=== PATIENT | male | born 1950 | race Two or more races ===

== ENCOUNTER 2022-12-15 19:45 | Inpatient (IN) | payer MEDICARE, OTHER ==
[~2022-12-15] VITALS: Ht 188 cm; Wt 84.8 kg
[~2022-12-15 19:45] MED LIST: BENZ1TAB22 PO; DIVA500T2 PO; LACT10SO29 PO; LEVO250T59 PO; LEVO25TA9 PO; LEVO330T PO; LORA-259 PO; OLAN5TAB3 PO
--- NOTE | 2022-12-15 20:16 | NUR ---
COVID SWAB DONE AND SENT TO LAB
--- NOTE | 2022-12-15 20:17 | NUR ---
WILFREDO FROM A SNF. SENT BY THE PMD FOR PSYCH EVAL. PT IA AAOX2. NOT IN RESP DISTRESS. SENT IN TO HAVE A PSYCHIATRIC EVAULATION. PER REPORT, PT WAS AGRRESSIVE - PHYSICALLY BY HITTING AND PUNCHING STAFF AND VERBALLY ABUSIVE TO STAFF BY CURSING, YELLING AND THREATENING TO HIT STAFF. PT IS NOTED AGITATED UPON ARRIVAL. MD WAS AT THE BEDSIDE. ORDERS RECEIVED.
[2022-12-15 20:29] LABS: BASOPHILS % (AUTO) 0.5 % (0.0-2.0); EOSINOPHILS % (AUTO) 3.8 % (0.0-6.0); HEMATOCRIT 39 % (39-51); HEMOGLOBIN 12.6 g/dL (13.5-17.5); LYMPHOCYTES # (AUTO) 2.2 K/uL (0.8-4.8); LYMPHOCYTES % (AUTO) 37.2 % (20.0-44.0); MEAN CORPUSCULAR HGB CONC 32 g/dl (31.0-36.0); MEAN CORPUSCULAR VOLUME 95 fL (80-96); MONOCYTES # (AUTO) 0.7 K/uL (0.1-1.30); MONOCYTES % (AUTO) 12.1 % (2.0-12.0); NEUTROPHILS # (AUTO) 2.8 K/uL (1.8-8.9); NEUTROPHILS % (AUTO) 46.4 % (43.0-81.0); PLATELET COUNT (AUTO) 195 K/uL (150-450); RED BLOOD CELL COUNT(AUTO) 4.13 MIL/uL (4.5-6.0)
[2022-12-15 20:36] LABS: CALCIUM, SERUM 9.3 mg/dL (8.5-10.1); CARBON DIOXIDE 28 mmol/L (21-32); CHLORIDE 108 mmol/L (98-107); CREATININE 2.1 mg/dL (0.6-1.3); GLUCOSE 87 mg/dL (74-106); POTASSIUM 4.2 mmol/L (3.5-5.1); SODIUM SERUM 138 mmol/L (136-145); UREA NITROGEN, BLOOD 42 mg/dL (7-18)
[2022-12-15 20:42] LABS: ALANINE AMINOTRANSFERASE 16 U/L (12-78); ALBUMIN 3.2 g/dL (3.4-5.0); ALCOHOL, BLOOD < 3 mg/dL (0-0); ALKALINE PHOSPHATASE 102 U/L (46-116); ASPARTATE AMINOTRANSFERASE 16 U/L (15-37); BILIRUBIN,DIRECT 0.1 mg/dL (0.0-0.2); BILIRUBIN,TOTAL 0.1 mg/dL (0.2-1.0); TOTAL PROTEIN, SERUM 7.2 g/dL (6.4-8.2)
[2022-12-15 20:47] LABS: ACETAMINOPHEN < 10 ug/ml (10-30)
--- NOTE | 2022-12-15 23:41 | NUR ---
REPORT GIVEN TO MIRNA WARD FOR DANIEL BY MIRNA GUSTAFSON
[2022-12-16 00:01] LABS: BILIRUBIN,URINE NEGATIVE (NEGATIVE); COLOR,URINE YELLOW (YELLOW); LEUKOCYTE ESTERASE ,URINE NEGATIVE (NEGATIVE); NITRITE, URINE NEGATIVE (NEGATIVE); PROTEIN,URINE NEGATIVE (NEGATIVE); UGLUCOSE NEGATIVE (NEGATIVE); UROBILINOGEN,URINE 0.2 EU/dL (0.2)
--- NOTE | 2022-12-16 00:25 | NUR ---
PT TRANSPORTED TO UNIT ON [facility] WITH EMT AT BEDSIDE. PT IS IN STABLE CONDITION. NAD NOTED.
[2022-12-16] MEDS ORDERED: LORAZEPAM 0.5 MG TABLET PO PRN (00:30)
[2022-12-16] MEDS ORDERED: ACETAMINOPHEN 325 MG TABLET PO PRN ×2 (00:30→12:30)
[2022-12-16] MEDS ORDERED: MAGNESIUM HYDROXIDE 30 ML UDC PO PRN (00:30)
[2022-12-16] MEDS ORDERED: BLOOD SUGAR DIAGNOSTIC 1 EACH STRIP IN ONE (00:30)
[2022-12-16] MEDS ORDERED: MAG HYDROX/AL HYDROX/SIMETH 30 ML UDC PO PRN (00:30)
[2022-12-16] MEDS ORDERED: ZOLPIDEM TARTRATE 5 MG TABLET PO PRN (00:30)
[2022-12-16] MEDS ORDERED: LORAZEPAM 1 MG TABLET ONE (00:35)
--- NOTE | 2022-12-16 01:36 | NUR ---
RN NOTES ADMITTED A 72 YEAR OLD MALE FROM [facility] ER, GPS ON 505 HOLD,,, PER HOLD GRAVELY DISABLE AND REFUSING MEDICATIONS, REFUSING TO EAT, UPON FACE TO FACE ASSESSMENT PATIENT IS A/O X 1 CONFUSED, DEMENTED, EASILY AGITATED, COMBATIVE, AND VERY POOR HYGIENE REFUSED TO GET A SHOWER DENIES SI/HI AT THIS TIME. HEAD TO TOE PHYSICAL ASSESSMENT DONE AND RECORDED. NO SIGNS OF SOB OR ANY DISTRESS NOTED AT THIS TIME. BLOOD SUGAR TAKEN WITH RESULTS OF 98 MG/DL APPLE JUICE GIVEN AND WELL TOLERATED BY THE PATIENT. POOR HISTORIAN, POOR INSIGHT, POOR JUDGEMENT, PATIENT REFUSED TO SIGNS ADMISSION CONSENT PAPERS, DUE TO MENTAL STATUS, BOTH MD AWARE AND NOTIFIED OF THE ADMISSION, BELONGINGS CONTRABAND WERE DONE, NURSING ASSESSMENT DONE, PT. RIGHT DISCUSS BY DIETITIAN TEACHING, PROVIDE PATIENT WITH HANDBOOK, AND MEDICATIONS GUIDE, ENVIRONMENTAL SAFETY CHECK DONE,PICTURES TAKEN AND RECORDED. ENCOURAGE TO VERBALIZED ANY FEELING CONCERNS TO STAFF, ORIENT TO UNIT CONTINUE TO MONITOR FOR [id number] AND BEHAVIORAL CHANGES
--- NOTE | 2022-12-16 06:44 | NUR ---
RN NOTES PATIENT REFUSED TO DO MRSA SWAB. DESPITE OF EXPLANATION.
[2022-12-16 07:13] LABS: CALCIUM, SERUM 9.3 mg/dL (8.5-10.1); CARBON DIOXIDE 24 mmol/L (21-32); CHLORIDE 109 mmol/L (98-107); CREATININE 1.8 mg/dL (0.6-1.3); GLUCOSE 80 mg/dL (74-106); POTASSIUM 4.6 mmol/L (3.5-5.1); SODIUM SERUM 142 mmol/L (136-145); UREA NITROGEN, BLOOD 41 mg/dL (7-18)
[2022-12-16 07:18] LABS: CREATININE 1.8 mg/dL (0.6-1.3)
[2022-12-16] MEDS: LEVOTHYROXINE SODIUM 25 MCG TABLET PO SCH (07:46)
[2022-12-16 08:00] VITALS: BP 125/64
[2022-12-16] MEDS: LACTULOSE 10 G/15 ML UDC (PYXIS) PO SCH ×2 (09:07→17:16)
[2022-12-16] MEDS: BENZTROPINE MESYLATE (1 MG) 1 MG TABLET PO SCH ×2 (09:08→17:17)
[2022-12-16] MEDS: LEVOCARNITINE 330 MG TABLET PO SCH ×3 (09:09→17:19)
--- NOTE | 2022-12-16 10:10 | NUR ---
RN- NOTES ULTRASOUND COMPLETED, 1850ML URINE NOTED. PATIENT URINATED PREVIOUSLY AND DOESN'T FEEL LIKE URINATING AT THE MOMENT. MD NOTIFIED AND ORDERED TO MONITOR FOR NOW. WILL CONTINUE TO MONITOR AND ATTEMPT TO HAVE PATIENT URINATE.
[2022-12-16] MEDS ORDERED: TRAZ-182 PO (10:38)
[2022-12-16] MEDS ORDERED: VITA1TAB56 PO (10:38)
[2022-12-16] MEDS ORDERED: AMAN100T PO (10:38)
[2022-12-16] MEDS ORDERED: ACET-868 PO (10:38)
[2022-12-16] MEDS ORDERED: GABA-532 PO (10:38)
[2022-12-16] MEDS ORDERED: MAGN400O6 PO (10:38)
[2022-12-16] MEDS ORDERED: SENN-261 PO (10:38)
[2022-12-16] MEDS ORDERED: THIA100T68 PO (10:38)
[2022-12-16] MEDS ORDERED: CHOL100043 PO (10:38)
[2022-12-16] MEDS ORDERED: FINA5TAB11 PO (10:38)
[2022-12-16] MEDS ORDERED: ATOR40TA PO (10:38)
--- NOTE | 2022-12-16 12:04 | NUR ---
TRISHA Initial Discharge Note: Patient currently resides at residential facility [facility] [address] [place] [address]; ). Pt is LPS conserved. TRISHA contacted public guardian and spoke with Jaylyn mckeon's LPS Conservator ([phone]) who stated she would want pt back to his facility and will send over the conservatorship documents/detain and treat. TRISHA will work with the MD, family, and treatment team.
--- NOTE | 2022-12-16 12:05 | NUR ---
Facility Contact: SW spoke with Logan Rojas ([phone]) who stated pt is welcomed back to [facility] when stable.
--- NOTE | 2022-12-16 12:05 | NUR ---
LPS Conservator: TRISHA contacted public guardian office and spoke with Jaylyn ([phone]) who stated she is the LPS conservator and she will send the conservatorship documents/detain and treat. She would want pt back to the facility when stable.
--- NOTE | 2022-12-16 12:06 | NUR ---
Treatment Plan: Pt is labile and refused to sign treatment plan.
--- NOTE | 2022-12-16 12:07 | NUR ---
TRISHA Clinical Note: Pt placed on a 5150 hold for GD and danger to others. Pt was aggressive at his facility. Patient currently resides at [facility] [address] [place] [address]; ). Pt is LPS conserved. TRISHA contacted public guardian and spoke with Jaylyn mckeon's LPS Conservator ([phone]) who stated she would want pt back to his facility and will send over the conservatorship documents/detain and treat.
--- NOTE | 2022-12-16 13:07 | NUR ---
LPS Conservator: TRISHA received LPS conservator document and Detain and treat by Jaylyn ([phone]). TRISHA placed in patient's chart and notified staff. [facility].
[2022-12-16] MEDS: GABAPENTIN 100 MG CAPSULE PO SCH ×2 (13:30→17:17)
[2022-12-16] MEDS ORDERED: OLANZAPINE 10 MG VIAL IM PRN (15:00)
[2022-12-16 16:00] VITALS: BP 119/58
--- NOTE | 2022-12-16 16:35 | NUR ---
RN- NOTES PATIENT REFUSED MRSA SWAB OF THE NARES, EDUCATION AND ENCOURAGEMENT X3 GIVEN, PATIENT CONTINUES TO REFUSE.
[2022-12-16] MEDS: AMANTADINE HCL 100 MG CAPSULE PO SCH (17:00)
[2022-12-16] MEDS: SENNOSIDES 8.6 MG TABLET PO SCH (17:16)
[2022-12-16] MEDS: DIVALPROEX SODIUM 500 MG TABLET.DR PO SCH (17:17)
[2022-12-16] MEDS: risperiDONE 1 MG TABLET PO SCH (17:17)
--- NOTE | 2022-12-16 17:50 | NUR ---
RN- NOTES PATIENT VOIDING DURING THE DAY, BUT ABDOMEN IS BLOATED/DISTENDED. US OF THE BLADDER Q 6 HOURS FOR [address] LOGAN TO RULE OUT URINARY RETENTION, STARTING AT 1999 TONIGHT. Addendum: 12/16/22 at 1753 by FREDDIE CR RN ORDER CLARIFIED. US OF THE BLADDER ONCE ORDERED TO RULE OUT URINARY RETENTION.
--- NOTE | 2022-12-16 18:03 | NUR ---
jingle writer unable to give amantadine 100mg to pt due to it not being available in pt cassette. informed pharmacy will wait for medication.
--- NOTE | 2022-12-16 18:36 | NUR ---
PT DID NOT RECEIVE AMANTADINE 100MG DUE TO MEDICATION NOT BEING IN [facility] WAS NOTIFIED BUT STILL HAS NOT ARRIVED WILL ENDORSE TO REMOTE SENSING ENGINEER.
[2022-12-16 20:00] VITALS: BP 132/88
[2022-12-16 20:43] VITALS: BP 132/88
[2022-12-16] MEDS: ATORVASTATIN 40 MG TABLET PO SCH (23:00)
[2022-12-16] MEDS: TRAZODONE 50 MG TABLET PO SCH (23:00)
--- NOTE | 2022-12-16 23:03 | NUR ---
3 NURSES TRIED MULTIPLE TIMES TO WAKE UP THE PATIENT AND OFFERED MEDS. PATIENT IS RESPONSIVE WITH INCOMPREHENSIBLE SOUND. CHEST RISE AND FALL NOTED. BUT THE PATIENT WAS JUST IGNORING US AND COVERED HIS HEAD WITH A BLANKET.
--- NOTE | 2022-12-17 06:41 | NUR ---
PATIENT RESTING IN BED. A/O X2, UNCLEAR SPEECH. UNKEMPT, DISHEVELED, TANGENTIAL THOUGHTS, FLAT AFFECT, WITHDRAWN, GUARDED. NO SOB OR NOTED. NO C/O PAIN. NO SI/HI AT THIS TIME. AMBULATORY WITH FWW AND NEEDS MINIMUM ASSISTANCE WITH ADLS. SAFETY PRECAUTIONS IN PLACE. WILL ENDORSE TO NEXT SHIFT FOR CONTINUITY OF CARE.
[2022-12-17] MEDS: LEVOTHYROXINE SODIUM 25 MCG TABLET PO SCH (07:00)
[2022-12-17 07:04] LABS: CHOLESTEROL 123 mg/dL (<200); HDL CHOLESTEROL 67 mg/dL (40-60); LDL 52 mg/dL (0-99); TRIGLYCERIDES 78 mg/dL (30-150)
[2022-12-17 08:00] VITALS: BP 109/63
[2022-12-17] MEDS: THIAMINE HCL 100 MG TABLET PO SCH (09:00)
[2022-12-17] MEDS: SENNOSIDES 8.6 MG TABLET PO SCH ×2 (09:00→17:37)
[2022-12-17] MEDS: DIVALPROEX SODIUM 500 MG TABLET.DR PO SCH ×3 (09:00→17:36)
[2022-12-17] MEDS: LACTULOSE 10 G/15 ML UDC (PYXIS) PO SCH ×2 (09:00→17:40)
[2022-12-17] MEDS: CHOLECALCIFEROL 1,000 UNIT TABLET (VIT D3) PO SCH (09:00)
[2022-12-17] MEDS: BENZTROPINE MESYLATE (1 MG) 1 MG TABLET PO SCH ×2 (09:00→17:30)
[2022-12-17] MEDS: LEVOCARNITINE 330 MG TABLET PO SCH ×3 (09:00→17:35)
[2022-12-17] MEDS: VITAMIN B COMP W-C 1 TAB TABLET PO SCH (09:00)
[2022-12-17] MEDS: FINASTERIDE (5 MG) 5 MG TABLET PO SCH (09:00)
[2022-12-17] MEDS: GABAPENTIN 100 MG CAPSULE PO SCH ×3 (09:00→17:36)
[2022-12-17] MEDS: risperiDONE 1 MG TABLET PO SCH ×2 (09:00→17:37)
[2022-12-17] MEDS: AMANTADINE HCL 100 MG CAPSULE PO SCH ×2 (09:00→17:37)
--- NOTE | 2022-12-17 09:38 | NUR ---
US bladder done and pt. is retaining 807cc. Per pt. he will urinate 3x a day and it's not time yet for him to urinate. Addendum: 12/17/22 at 0942 by YUDI HEATH RN Jose Eduardo yanez aware
--- NOTE | 2022-12-17 11:37 | NUR ---
Dr. Lamar ordered to change to status to conserved.
[2022-12-17 16:00] VITALS: BP 136/78
[2022-12-17 20:00] VITALS: BP 138/79
[2022-12-17] MEDS: ATORVASTATIN 40 MG TABLET PO SCH (21:58)
[2022-12-17] MEDS: TRAZODONE 50 MG TABLET PO SCH (21:59)
--- NOTE | 2022-12-18 03:41 | NUR ---
Patient voided without difficulty no abnormal behavior.
[2022-12-18] MEDS: LEVOTHYROXINE SODIUM 25 MCG TABLET PO SCH (06:09)
[2022-12-18 08:00] VITALS: BP 133/98
[2022-12-18] MEDS: LEVOCARNITINE 330 MG TABLET PO SCH ×3 (09:25→17:35)
[2022-12-18] MEDS: AMANTADINE HCL 100 MG CAPSULE PO SCH ×2 (09:26→17:35)
[2022-12-18] MEDS: FINASTERIDE (5 MG) 5 MG TABLET PO SCH (09:32)
[2022-12-18] MEDS: risperiDONE 1 MG TABLET PO SCH ×2 (09:32→17:44)
[2022-12-18] MEDS: LACTULOSE 10 G/15 ML UDC (PYXIS) PO SCH ×2 (09:32→17:44)
[2022-12-18] MEDS: GABAPENTIN 100 MG CAPSULE PO SCH ×3 (09:32→17:49)
[2022-12-18] MEDS: SENNOSIDES 8.6 MG TABLET PO SCH ×2 (09:32→17:49)
[2022-12-18] MEDS: THIAMINE HCL 100 MG TABLET PO SCH (09:32)
[2022-12-18] MEDS: DIVALPROEX SODIUM 500 MG TABLET.DR PO SCH ×3 (09:32→17:43)
[2022-12-18] MEDS: VITAMIN B COMP W-C 1 TAB TABLET PO SCH (09:32)
[2022-12-18] MEDS: BENZTROPINE MESYLATE (1 MG) 1 MG TABLET PO SCH ×2 (09:33→17:44)
[2022-12-18] MEDS: CHOLECALCIFEROL 1,000 UNIT TABLET (VIT D3) PO SCH (09:33)
[2022-12-18 16:00] VITALS: BP 126/80
[2022-12-18 20:00] VITALS: BP 100/55
--- NOTE | 2022-12-18 20:06 | NUR ---
GPS RN OPENING NOTES RECEIVED PATIENT IN LYING IN BED, AWAKE. ON FLAT POSITION. NO S/S OF PAIN OR ANY FORM OF DISTRESS AT THIS TIME. NO COMPLAIN OF SOB AT THIS TIME. PATIENT IS COMBATIVE, EASILY DISTRACTED AND YELLING AT TIMES. ISOLATIVE, QUIET AND DISORIENTED, ABLE TO AMBULATE WITH THE WALKER. ABLE TO MADE NEEDS KNOW. NOTED PARANOID BEHAVIOR AT TIMES.WITH BARGAINING BEHAVIOR TOWARDS TREATMENT . KEPT BED ON LOWER LOCKED POSITION, KEPT SIDE RAILS UP X 3 ALL THE TIMES, KEPT CALL LIGHT WITHIN AT REACH. WILL CONTINUE TO MONITOR Q15 MINUTES.
[2022-12-18] MEDS: TRAZODONE 50 MG TABLET PO SCH (21:37)
[2022-12-18] MEDS: ATORVASTATIN 40 MG TABLET PO SCH (21:37)
--- NOTE | 2022-12-19 06:24 | NUR ---
RN NOTES PATIENT REFUSED BLOOD DRAW THIS AM.
[2022-12-19] MEDS: LEVOTHYROXINE SODIUM 25 MCG TABLET PO SCH ×2 (06:41→08:32)
--- NOTE | 2022-12-19 06:42 | NUR ---
RN NOTES PATIENT REFUSED SYNTHROID IN AM.
[2022-12-19 08:00] VITALS: BP 138/89
[2022-12-19] MEDS: FINASTERIDE (5 MG) 5 MG TABLET PO SCH (08:30)
[2022-12-19] MEDS: CHOLECALCIFEROL 1,000 UNIT TABLET (VIT D3) PO SCH (08:31)
[2022-12-19] MEDS: GABAPENTIN 100 MG CAPSULE PO SCH ×3 (08:31→17:09)
[2022-12-19] MEDS: SENNOSIDES 8.6 MG TABLET PO SCH ×2 (08:31→17:13)
[2022-12-19] MEDS: risperiDONE 1 MG TABLET PO SCH ×2 (08:31→17:09)
[2022-12-19] MEDS: DIVALPROEX SODIUM 500 MG TABLET.DR PO SCH ×3 (08:31→17:10)
[2022-12-19] MEDS: BENZTROPINE MESYLATE (1 MG) 1 MG TABLET PO SCH ×2 (08:31→17:09)
[2022-12-19] MEDS: VITAMIN B COMP W-C 1 TAB TABLET PO SCH (08:31)
[2022-12-19] MEDS: THIAMINE HCL 100 MG TABLET PO SCH (08:33)
[2022-12-19] MEDS: LACTULOSE 10 G/15 ML UDC (PYXIS) PO SCH ×2 (08:34→17:11)
[2022-12-19] MEDS: LEVOCARNITINE 330 MG TABLET PO SCH ×3 (08:34→17:14)
[2022-12-19] MEDS: AMANTADINE HCL 100 MG CAPSULE PO SCH ×2 (08:34→17:13)
[2022-12-19] MEDS: LORAZEPAM 1 MG TABLET PO PRN (08:50)
[2022-12-19 16:00] VITALS: BP 127/77
--- NOTE | 2022-12-19 19:00 | NUR ---
GPS RN OPENING NOTE RECEIVED PATIENT ASLEEP AND IN THE BED. PT IS A/OX2, ABLE TO WALK W/ A WALKER. PT AGITATED EASILY. PATIENT IS SHOWING NO S/S OF DISTRESS AT THIS TIME. PT HAS NO S/S OR COMPLAINTS OF PAIN @ THIS TIME. PA PT IS IN RA TOLERATING WELL, BREATHING EVEN AND UNLABORED @ THIS TIME. PATIENT HAS NO NEED @ THIS TIME. PATIENT BED SIDE RAILS UP X 2 FOR SAFETY. BED LOCKED AND LOW. WILL CONTINUE TO MONITOR Q15 WITH THE HELP OF STAFF TO MAINTAIN SAFETY.
[2022-12-19] MEDS: ATORVASTATIN 40 MG TABLET PO SCH (21:31)
[2022-12-19] MEDS: TRAZODONE 50 MG TABLET PO SCH (21:31)
[2022-12-20 08:00] VITALS: BP 132/88
[2022-12-20] MEDS: BENZTROPINE MESYLATE (1 MG) 1 MG TABLET PO SCH ×2 (08:17→16:25)
[2022-12-20] MEDS: risperiDONE 1 MG TABLET PO SCH ×2 (08:18→16:25)
[2022-12-20] MEDS: DIVALPROEX SODIUM 500 MG TABLET.DR PO SCH ×3 (08:18→16:25)
[2022-12-20] MEDS: FINASTERIDE (5 MG) 5 MG TABLET PO SCH (08:18)
[2022-12-20] MEDS: CHOLECALCIFEROL 1,000 UNIT TABLET (VIT D3) PO SCH (08:18)
[2022-12-20] MEDS: GABAPENTIN 100 MG CAPSULE PO SCH ×3 (08:18→16:25)
[2022-12-20] MEDS: SENNOSIDES 8.6 MG TABLET PO SCH ×2 (08:18→16:26)
[2022-12-20] MEDS: THIAMINE HCL 100 MG TABLET PO SCH (08:18)
[2022-12-20] MEDS: AMANTADINE HCL 100 MG CAPSULE PO SCH ×2 (08:18→16:25)
[2022-12-20] MEDS: VITAMIN B COMP W-C 1 TAB TABLET PO SCH (08:19)
[2022-12-20] MEDS: LEVOCARNITINE 330 MG TABLET PO SCH ×3 (08:19→16:25)
[2022-12-20] MEDS: LEVOTHYROXINE SODIUM 25 MCG TABLET PO SCH (08:20)
[2022-12-20] MEDS: LACTULOSE 10 G/15 ML UDC (PYXIS) PO SCH ×2 (08:21→16:25)
[2022-12-20] MEDS: LORAZEPAM 1 MG TABLET PO PRN ×2 (11:21→19:43)
--- NOTE | 2022-12-20 11:33 | NUR ---
RN-CO: ATIVAN 1 MG PO GIVEN FOR YELLING and screaming in the dining room for no reason.
[2022-12-20 16:00] VITALS: BP 113/60
[2022-12-20 20:19] VITALS: BP 155/76
[2022-12-20] MEDS: ATORVASTATIN 40 MG TABLET PO SCH (21:12)
[2022-12-20] MEDS: TRAZODONE 50 MG TABLET PO SCH (21:12)
[2022-12-21] MEDS: LEVOTHYROXINE SODIUM 25 MCG TABLET PO SCH (06:08)
[2022-12-21 08:00] VITALS: BP 122/59
[2022-12-21] MEDS: AMANTADINE HCL 100 MG CAPSULE PO SCH ×2 (09:22→17:05)
[2022-12-21] MEDS: CHOLECALCIFEROL 1,000 UNIT TABLET (VIT D3) PO SCH (09:22)
[2022-12-21] MEDS: VITAMIN B COMP W-C 1 TAB TABLET PO SCH (09:22)
[2022-12-21] MEDS: GABAPENTIN 100 MG CAPSULE PO SCH ×3 (09:22→17:05)
[2022-12-21] MEDS: SENNOSIDES 8.6 MG TABLET PO SCH ×2 (09:22→17:05)
[2022-12-21] MEDS: risperiDONE 1 MG TABLET PO SCH ×2 (09:22→17:05)
[2022-12-21] MEDS: THIAMINE HCL 100 MG TABLET PO SCH (09:22)
[2022-12-21] MEDS: DIVALPROEX SODIUM 500 MG TABLET.DR PO SCH ×3 (09:22→17:05)
[2022-12-21] MEDS: FINASTERIDE (5 MG) 5 MG TABLET PO SCH (09:22)
[2022-12-21] MEDS: LACTULOSE 10 G/15 ML UDC (PYXIS) PO SCH ×2 (09:23→17:05)
[2022-12-21] MEDS: BENZTROPINE MESYLATE (1 MG) 1 MG TABLET PO SCH ×2 (09:25→17:06)
[2022-12-21] MEDS: LEVOCARNITINE 330 MG TABLET PO SCH ×3 (09:25→17:00)
[2022-12-21 16:00] VITALS: BP 145/85
--- NOTE | 2022-12-21 17:30 | NUR ---
RN- NOTES CARNITOR 990MG NOT ADMINISTERED DUE TO MEDICATION NOT AVAILABLE. PHARMACY NOTIFIED.
[2022-12-21 19:51] VITALS: BP 132/74
[2022-12-21] MEDS: ATORVASTATIN 40 MG TABLET PO SCH (21:03)
[2022-12-21] MEDS: TRAZODONE 50 MG TABLET PO SCH (21:03)
[2022-12-22] MEDS: LEVOTHYROXINE SODIUM 25 MCG TABLET PO SCH (06:21)
[2022-12-22 08:00] VITALS: BP 142/77
[2022-12-22] MEDS: LEVOCARNITINE 330 MG TABLET PO SCH ×3 (09:00→16:52)
[2022-12-22] MEDS: DIVALPROEX SODIUM 500 MG TABLET.DR PO SCH ×3 (09:15→16:52)
[2022-12-22] MEDS: LACTULOSE 10 G/15 ML UDC (PYXIS) PO SCH ×2 (09:15→16:52)
[2022-12-22] MEDS: THIAMINE HCL 100 MG TABLET PO SCH (09:15)
[2022-12-22] MEDS: risperiDONE 1 MG TABLET PO SCH ×2 (09:15→16:52)
[2022-12-22] MEDS: VITAMIN B COMP W-C 1 TAB TABLET PO SCH (09:15)
[2022-12-22] MEDS: BENZTROPINE MESYLATE (1 MG) 1 MG TABLET PO SCH ×2 (09:15→16:52)
[2022-12-22] MEDS: SENNOSIDES 8.6 MG TABLET PO SCH ×2 (09:15→16:53)
[2022-12-22] MEDS: GABAPENTIN 100 MG CAPSULE PO SCH ×3 (09:15→16:52)
[2022-12-22] MEDS: CHOLECALCIFEROL 1,000 UNIT TABLET (VIT D3) PO SCH (09:15)
[2022-12-22] MEDS: FINASTERIDE (5 MG) 5 MG TABLET PO SCH (09:15)
[2022-12-22] MEDS: AMANTADINE HCL 100 MG CAPSULE PO SCH ×2 (09:16→16:52)
--- NOTE | 2022-12-22 09:26 | NUR ---
RN- NOTES CARNITOR 990MG NOT ADMINISTERED DUE TO MEDICATION NOT AVAILABLE. PHARMACY NOTIFIED.
[2022-12-22 16:00] VITALS: BP 126/79
[2022-12-22 20:11] VITALS: BP 102/60
[2022-12-22] MEDS: TRAZODONE 50 MG TABLET PO SCH ×2 (21:58→22:00)
[2022-12-22] MEDS: ATORVASTATIN 40 MG TABLET PO SCH ×2 (21:58→22:00)
--- NOTE | 2022-12-22 22:19 | NUR ---
RN NOTE PT REFUSED MEDICATION LIPITOR AND DESYREL DUE AT 2200. CHARGE NURSE, MIRNA NEWSOME, NOTIFIED. MEDICATIONS ARE RETURNED TO [facility].
[2022-12-23] MEDS: TRAZODONE 50 MG TABLET PO SCH ×2 (01:01→21:24)
--- NOTE | 2022-12-23 01:02 | NUR ---
RN NOTE PT ASKED FOR THE MEDICATION, DESYREL, HE MISSED. MEDICATION GIVEN TO THE PT PER PT'S REQUEST. CHARGE NURSE, JEROD, NOTIFIED.
[2022-12-23] MEDS: LEVOTHYROXINE SODIUM 25 MCG TABLET PO SCH (06:09)
[2022-12-23] MEDS: LORAZEPAM 1 MG TABLET PO PRN (07:20)
--- NOTE | 2022-12-23 07:23 | NUR ---
RN NOTE PT STARTED YELLING LOUDLY. HE IS VERY AGITATED. PRN PO MEDICATION, ATIVAN, GIVEN PER MD ORDER.
[2022-12-23 08:00] VITALS: BP 116/66
[2022-12-23] MEDS: CHOLECALCIFEROL 1,000 UNIT TABLET (VIT D3) PO SCH (08:49)
[2022-12-23] MEDS: risperiDONE 1 MG TABLET PO SCH ×2 (08:49→17:16)
[2022-12-23] MEDS: LEVOCARNITINE 330 MG TABLET PO SCH ×3 (08:49→17:16)
[2022-12-23] MEDS: BENZTROPINE MESYLATE (1 MG) 1 MG TABLET PO SCH ×2 (08:49→17:16)
[2022-12-23] MEDS: THIAMINE HCL 100 MG TABLET PO SCH (08:50)
[2022-12-23] MEDS: SENNOSIDES 8.6 MG TABLET PO SCH ×2 (08:50→17:17)
[2022-12-23] MEDS: AMANTADINE HCL 100 MG CAPSULE PO SCH ×2 (08:50→17:17)
[2022-12-23] MEDS: FINASTERIDE (5 MG) 5 MG TABLET PO SCH (08:50)
[2022-12-23] MEDS: LACTULOSE 10 G/15 ML UDC (PYXIS) PO SCH ×2 (08:50→17:18)
[2022-12-23] MEDS: DIVALPROEX SODIUM 500 MG TABLET.DR PO SCH ×3 (08:50→17:17)
[2022-12-23] MEDS: VITAMIN B COMP W-C 1 TAB TABLET PO SCH (08:51)
[2022-12-23] MEDS: GABAPENTIN 100 MG CAPSULE PO SCH ×3 (08:51→17:17)
[2022-12-23 16:00] VITALS: BP 149/70
[2022-12-23 20:00] VITALS: BP 127/72
[2022-12-23 20:11] VITALS: BP 122/72
--- NOTE | 2022-12-23 20:30 | NUR ---
RN OPENING NOTES: RECEIVED PATIENT SLEEP IN BED COMFORTABLY, AROUSABLE TO VERBAL STIMULI, BED IN LOW POSITION ON ROOM AIR SATURATING WELL, NO AGGRESIVE BEHAVIOR WAS OBSERVED, WILL CONTINUE TO MONITOR.
[2022-12-23] MEDS: ATORVASTATIN 40 MG TABLET PO SCH (21:24)
[2022-12-24] MEDS: LEVOTHYROXINE SODIUM 25 MCG TABLET PO SCH (06:06)
[2022-12-24 08:00] VITALS: BP 148/80
[2022-12-24] MEDS: LACTULOSE 10 G/15 ML UDC (PYXIS) PO SCH ×2 (09:01→16:14)
[2022-12-24] MEDS: THIAMINE HCL 100 MG TABLET PO SCH (09:01)
[2022-12-24] MEDS: risperiDONE 1 MG TABLET PO SCH ×2 (09:01→16:14)
[2022-12-24] MEDS: AMANTADINE HCL 100 MG CAPSULE PO SCH ×2 (09:01→16:14)
[2022-12-24] MEDS: VITAMIN B COMP W-C 1 TAB TABLET PO SCH (09:01)
[2022-12-24] MEDS: DIVALPROEX SODIUM 500 MG TABLET.DR PO SCH ×3 (09:01→16:15)
[2022-12-24] MEDS: SENNOSIDES 8.6 MG TABLET PO SCH ×2 (09:01→16:14)
[2022-12-24] MEDS: LEVOCARNITINE 330 MG TABLET PO SCH ×3 (09:01→16:14)
[2022-12-24] MEDS: GABAPENTIN 100 MG CAPSULE PO SCH ×3 (09:01→16:15)
[2022-12-24] MEDS: FINASTERIDE (5 MG) 5 MG TABLET PO SCH (09:01)
[2022-12-24] MEDS: CHOLECALCIFEROL 1,000 UNIT TABLET (VIT D3) PO SCH (09:02)
[2022-12-24] MEDS: BENZTROPINE MESYLATE (1 MG) 1 MG TABLET PO SCH ×2 (09:02→16:15)
[2022-12-24 16:00] VITALS: BP 132/71
--- NOTE | 2022-12-24 18:36 | NUR ---
RN- CLOSING NOTES PATIENT IS AWAKE, RESTING IN BED, BREATHING EVEN AND NON LABORED WITH NO S/S OF DISTRESS. PATIENT IS CONFUSED, GUARDED, ANXIOUS, DISORIENTED, AND HYPERVERBAL WHEN RESPONDING IN HIS ROOM. URINE OUTPUT NOTED THROUGHOUT THE SHIFT, WITHOUT DIFFICULTY. PATIENT IS MEDICATION COMPLIANT. DENIES SI/HI AT THIS TIME. WILL CONTINUE TO MONITOR Q 15 MINUTES FOR SAFETY AND BEHAVIOR.
--- NOTE | 2022-12-24 19:42 | NUR ---
GOVERNMENT TEACHER NOTES:RECEIVED PATIENT RESTING IN BED IN NO ACUTE DISTRESS.BREATHING EVEN AND UNLABORED.NO SOB.PATIENT IS ALERT AND ORIENTED X1.PATIENT IS ANXIOUS ,CONFUSED,NEEDS FREQUENT REDIRECTION AND REMINDER TO USE WALKER. ABLE TO VERBALIZED SIMPLE NEEDS.VOIDED WITHOUT DIFFICULTY.NO S/S OF PAIN AT THIS TIME. KEPT BED ON LOWER LOCKED POSITION, KEPT SIDE RAILS UP X 2 ALL THE TIMES. LL NEED MET AND ANTICIPATED.WILL CONTINUE TO MONITOR Q15 MINUTES .CHECK FOR SAFETY AND BEHAVIOR.
[2022-12-24 20:21] VITALS: BP 130/74
[2022-12-24] MEDS: TRAZODONE 50 MG TABLET PO SCH (21:12)
[2022-12-24] MEDS: ATORVASTATIN 40 MG TABLET PO SCH (21:12)
[2022-12-25] MEDS: LEVOTHYROXINE SODIUM 25 MCG TABLET PO SCH (07:56)
[2022-12-25 08:00] VITALS: BP 120/72
[2022-12-25] MEDS: CHOLECALCIFEROL 1,000 UNIT TABLET (VIT D3) PO SCH (08:35)
[2022-12-25] MEDS: risperiDONE 1 MG TABLET PO SCH ×2 (08:35→16:54)
[2022-12-25] MEDS: LACTULOSE 10 G/15 ML UDC (PYXIS) PO SCH ×2 (08:35→16:55)
[2022-12-25] MEDS: FINASTERIDE (5 MG) 5 MG TABLET PO SCH (08:36)
[2022-12-25] MEDS: BENZTROPINE MESYLATE (1 MG) 1 MG TABLET PO SCH ×2 (08:36→16:55)
[2022-12-25] MEDS: AMANTADINE HCL 100 MG CAPSULE PO SCH ×2 (08:36→16:54)
[2022-12-25] MEDS: THIAMINE HCL 100 MG TABLET PO SCH (08:36)
[2022-12-25] MEDS: SENNOSIDES 8.6 MG TABLET PO SCH ×2 (08:36→16:54)
[2022-12-25] MEDS: VITAMIN B COMP W-C 1 TAB TABLET PO SCH (08:36)
[2022-12-25] MEDS: DIVALPROEX SODIUM 500 MG TABLET.DR PO SCH ×3 (08:36→16:54)
[2022-12-25] MEDS: GABAPENTIN 100 MG CAPSULE PO SCH ×3 (08:37→16:55)
[2022-12-25] MEDS: LEVOCARNITINE 330 MG TABLET PO SCH ×3 (08:37→17:42)
[2022-12-25 16:00] VITALS: BP 134/88
--- NOTE | 2022-12-25 19:51 | NUR ---
AGRONOMY INTERNSHIP NOTES:RECEIVED PATIENT RESTING IN BED IN NO ACUTE DISTRESS.BREATHING EVEN AND UNLABORED.NO SOB.PATIENT IS ALERT AND ORIENTED X1.PATIENT IS ANXIOUS ,CONFUSED,NEEDS FREQUENT REDIRECTION AND REMINDER TO USE WALKER. ABLE TO VERBALIZED SIMPLE NEEDS.VOIDED WITHOUT DIFFICULTY.NO S/S OF PAIN AT THIS TIME. KEPT BED ON LOWER LOCKED POSITION, KEPT SIDE RAILS UP X 2 ALL THE TIMES.ALL NEED MET AND ANTICIPATED.WILL CONTINUE TO MONITOR Q15 MINUTES .CHECK FOR SAFETY AND BEHAVIOR.
[2022-12-25 20:00] VITALS: BP 118/70
[2022-12-25] MEDS: TRAZODONE 50 MG TABLET PO SCH (21:43)
[2022-12-25] MEDS: ATORVASTATIN 40 MG TABLET PO SCH (21:43)
[2022-12-26] MEDS: LORAZEPAM 1 MG TABLET PO PRN ×2 (04:54→19:18)
--- NOTE | 2022-12-26 04:58 | NUR ---
PATIENT SCREAMING AND YELLING.NONREDIRECTED ADMINISTERED PRN ATIVAN 1 MG
[2022-12-26 08:00] VITALS: BP 128/68
[2022-12-26] MEDS: BENZTROPINE MESYLATE (1 MG) 1 MG TABLET PO SCH ×2 (09:12→17:37)
[2022-12-26] MEDS: LEVOTHYROXINE SODIUM 25 MCG TABLET PO SCH (09:12)
[2022-12-26] MEDS: VITAMIN B COMP W-C 1 TAB TABLET PO SCH (09:12)
[2022-12-26] MEDS: GABAPENTIN 100 MG CAPSULE PO SCH ×3 (09:12→17:37)
[2022-12-26] MEDS: CHOLECALCIFEROL 1,000 UNIT TABLET (VIT D3) PO SCH (09:12)
[2022-12-26] MEDS: SENNOSIDES 8.6 MG TABLET PO SCH ×2 (09:12→17:39)
[2022-12-26] MEDS: LEVOCARNITINE 330 MG TABLET PO SCH ×3 (09:13→17:39)
[2022-12-26] MEDS: DIVALPROEX SODIUM 500 MG TABLET.DR PO SCH ×3 (09:13→17:37)
[2022-12-26] MEDS: FINASTERIDE (5 MG) 5 MG TABLET PO SCH (09:13)
[2022-12-26] MEDS: risperiDONE 1 MG TABLET PO SCH ×2 (09:13→17:39)
[2022-12-26] MEDS: AMANTADINE HCL 100 MG CAPSULE PO SCH ×2 (09:13→17:37)
[2022-12-26] MEDS: LACTULOSE 10 G/15 ML UDC (PYXIS) PO SCH ×2 (09:13→17:37)
[2022-12-26] MEDS: THIAMINE HCL 100 MG TABLET PO SCH (09:13)
[2022-12-26 16:11] VITALS: BP 127/81
--- NOTE | 2022-12-26 19:19 | NUR ---
NURSE NOTE:ANXIETY PATIENT IS ANXIOUS,HYPERVERBAL AND RESTLESS PRN ATIVAN 1 MG PO GIVEN PATIENTS BEHAVIOR.TITUS CONTINUE TO MONITOR.
--- NOTE | 2022-12-26 20:45 | NUR ---
NURSE NOTES ATIVAN 1 MG IS EFFECTIVE.PATIENT ASLEEP
[2022-12-26 20:53] VITALS: BP 123/70
[2022-12-26] MEDS: ATORVASTATIN 40 MG TABLET PO SCH (21:17)
[2022-12-26] MEDS: TRAZODONE 50 MG TABLET PO SCH (21:17)
[2022-12-27 08:00] VITALS: BP 143/88
[2022-12-27] MEDS: LEVOCARNITINE 330 MG TABLET PO SCH ×3 (08:43→16:16)
[2022-12-27] MEDS: risperiDONE 1 MG TABLET PO SCH ×2 (08:43→16:17)
[2022-12-27] MEDS: GABAPENTIN 100 MG CAPSULE PO SCH ×3 (08:44→16:16)
[2022-12-27] MEDS: VITAMIN B COMP W-C 1 TAB TABLET PO SCH (08:44)
[2022-12-27] MEDS: SENNOSIDES 8.6 MG TABLET PO SCH ×2 (08:44→16:16)
[2022-12-27] MEDS: THIAMINE HCL 100 MG TABLET PO SCH (08:44)
[2022-12-27] MEDS: FINASTERIDE (5 MG) 5 MG TABLET PO SCH (08:51)
[2022-12-27] MEDS: LEVOTHYROXINE SODIUM 25 MCG TABLET PO SCH (08:51)
[2022-12-27] MEDS: CHOLECALCIFEROL 1,000 UNIT TABLET (VIT D3) PO SCH (08:52)
[2022-12-27] MEDS: AMANTADINE HCL 100 MG CAPSULE PO SCH ×2 (08:52→16:16)
[2022-12-27] MEDS: DIVALPROEX SODIUM 500 MG TABLET.DR PO SCH ×3 (08:52→16:16)
[2022-12-27] MEDS: BENZTROPINE MESYLATE (1 MG) 1 MG TABLET PO SCH ×2 (08:55→16:15)
[2022-12-27] MEDS: LACTULOSE 10 G/15 ML UDC (PYXIS) PO SCH ×2 (11:18→16:17)
[2022-12-27 16:00] VITALS: BP 127/59
[2022-12-27] MEDS: TRAZODONE 50 MG TABLET PO SCH (21:27)
[2022-12-27] MEDS: ATORVASTATIN 40 MG TABLET PO SCH (21:27)
[2022-12-28] MEDS: LEVOTHYROXINE SODIUM 25 MCG TABLET PO SCH (06:46)
[2022-12-28 07:00] LABS: CALCIUM, SERUM 8.9 mg/dL (8.5-10.1); CARBON DIOXIDE 25 mmol/L (21-32); CHLORIDE 106 mmol/L (98-107); CREATININE 1.6 mg/dL (0.6-1.3); GLUCOSE 92 mg/dL (74-106); POTASSIUM 4.4 mmol/L (3.5-5.1); SODIUM SERUM 138 mmol/L (136-145); UREA NITROGEN, BLOOD 38 mg/dL (7-18)
[2022-12-28 08:00] VITALS: BP 137/64
--- NOTE | 2022-12-28 08:04 | NUR ---
SW Discharge Note: Patient will be discharged to [facility]pc facility [facility] [address] [facility], [place] [address]; ). Please arrange transportation at 1PM. Head Butler spoke with Brandi learning services coordinator at [facility]; ([phone]), who stated patient will be accepted today. Patients [facility] Conservator Jaylyn ([phone]) is aware. Patient is alert and oriented x1 and is unable to plan for self-care. Patient denies any suicidal or homicidal ideations. Patient is aware and agreeable with discharge plans. Patient will continue to follow-up with (psychiatrist) Dr. Lamar located at [id number] [place] [id number]; ([phone]) and (mechanical system technician) Dr. Liao [address] [facility] [address], [place] [address]; ([phone]). Patient presents with euthymic and congruent mood.
[2022-12-28] MEDS: VITAMIN B COMP W-C 1 TAB TABLET PO SCH (08:32)
[2022-12-28] MEDS: FINASTERIDE (5 MG) 5 MG TABLET PO SCH (08:33)
[2022-12-28] MEDS: THIAMINE HCL 100 MG TABLET PO SCH (08:33)
[2022-12-28] MEDS: risperiDONE 1 MG TABLET PO SCH (08:33)
[2022-12-28] MEDS: SENNOSIDES 8.6 MG TABLET PO SCH (08:33)
[2022-12-28] MEDS: CHOLECALCIFEROL 1,000 UNIT TABLET (VIT D3) PO SCH (08:33)
[2022-12-28] MEDS: GABAPENTIN 100 MG CAPSULE PO SCH ×2 (08:33→12:02)
[2022-12-28] MEDS: DIVALPROEX SODIUM 500 MG TABLET.DR PO SCH ×2 (08:33→12:03)
[2022-12-28] MEDS: LACTULOSE 10 G/15 ML UDC (PYXIS) PO SCH (08:34)
[2022-12-28] MEDS: AMANTADINE HCL 100 MG CAPSULE PO SCH (08:34)
[2022-12-28] MEDS: BENZTROPINE MESYLATE (1 MG) 1 MG TABLET PO SCH (08:34)
[2022-12-28] MEDS: LEVOCARNITINE 330 MG TABLET PO SCH ×2 (08:34→12:03)
--- NOTE | 2022-12-28 09:36 | NUR ---
RN-CO: PATIENT IS ALERT TO NAME ONLY, NO S/S OF DISTRESS AND DENIED PAIN AND DISCOMFORTS. HIS AFFECT IS ELATED AND AWARE OF HIS DISCHARGE. DR SHEPARD ORDERED TO DISCHARGE PATIENT TO SNF NOTED AND CARRIED OUT. HE WAS MEDICALLY CLEARED BY DR HOPSON. PT HAS BEEN CALM AND COOPERATIVE TO CARE. HE DENIED SUICIDAL AND HOMICIDAL IDEATIONS. DENIED COMMAND HALLUCINATIONS. CONSERVATOR KIRSTIN [phone] IS AWARE AND AGREEABLE FOR HIS DISCHARGE. ALL CLOTHES AND BELONGINGS WILL BE GIVEN BACK TO HIM. REPORT WILL BE GIVEN TO RECEIVING RN IN SNF AND TO EMT.
--- NOTE | 2022-12-28 12:59 | NUR ---
RN-CO: REPORT WAS GIVEN TO "DARLENE" MIRNA.
--- NOTE | 2022-12-28 13:32 | NUR ---
RN-CO: P/U BY AMBULANCE.
== END 2022-12-28 13:32 | DRG 885 ==
LOC: ER 19:47 → GPS 23:14
PROVIDERS: ADMIT Psychiatry & Neurology Psychiatry; ATTEND Nurse Practitioner Acute Care
DX: F25.0 Schizoaffective disorder, bipolar type (principal); N17.0 Acute kidney failure with tubular necrosis; N18.9 Chronic kidney disease, unspecified; F03.92 Unspecified dementia, unspecified severity, with psychotic disturbance; E44.0 Moderate protein-calorie malnutrition; I12.9 Hypertensive chronic kidney disease with stage 1 through stage 4 chronic kidney disease, or unspecified chronic kidney disease; E03.9 Hypothyroidism, unspecified; E88.09 Other disorders of plasma-protein metabolism, not elsewhere classified; Z91.199 Patient's noncompliance with other medical treatment and regimen due to unspecified reason; N40.0 Benign prostatic hyperplasia without lower urinary tract symptoms; G62.9 Polyneuropathy, unspecified; Z20.822 Contact with and (suspected) exposure to COVID-19
CPT/HCPCS: 36415; 76770-TC; 76856-TC; 80048-TC; 80061-TC; 80076-TC; 80164-TC; 82565-TC; 82962-TC; 85025-TC; C9803; G0480

== ENCOUNTER 2024-01-10 16:00 | Inpatient (IN) | payer MEDICARE, OTHER ==
[~2024-01-10] VITALS: Ht 188 cm; Wt 83.9 kg
[~2024-01-10 16:00] MED LIST changes: +ACET-868 PO; +AMAN100T PO; +ATOR40TA PO; -BENZ1TAB22 PO; +DIVA-78 PO; -DIVA500T2 PO; +ERGO50CA PO; +FINA5TAB11 PO; +GABA-532 PO; -LACT10SO29 PO; +LACT10SO5 PO; -LEVO250T59 PO; -LORA-259 PO; +MAG-151 PO; +MAGN400O6 PO; -OLAN5TAB3 PO; +SENN-261 PO; +THIA100T68 PO; +VITA1TAB56 PO
[2024-01-10 16:50] LABS: BASOPHILS % (AUTO) 0.4 % (0.0-2.0); EOSINOPHILS # (AUTO) 0.1 K/uL (0.0-0.7); EOSINOPHILS % (AUTO) 2.1 % (0.0-6.0); HEMATOCRIT 29 % (39-51); HEMOGLOBIN 9.2 g/dL (13.5-17.5); LYMPHOCYTES # (AUTO) 1.5 K/uL (0.8-4.8); LYMPHOCYTES % (AUTO) 28.2 % (20.0-44.0); MEAN CORPUSCULAR HEMOGLOBIN 30 PG (26.0-33.0); MEAN CORPUSCULAR HGB CONC 32 g/dl (31.0-36.0); MEAN CORPUSCULAR VOLUME 94 fL (80-96); MONOCYTES # (AUTO) 0.7 K/uL (0.1-1.30); MONOCYTES % (AUTO) 13.6 % (2.0-12.0); NEUTROPHILS % (AUTO) 55.7 % (43.0-81.0); PLATELET COUNT (AUTO) 265 K/uL (150-450); RED BLOOD CELL COUNT(AUTO) 3.08 MIL/uL (4.5-6.0); RED CELL DISTRIBUTION WIDTH 19.3 % (11.5-15.0); WHITE BLOOD COUNT (AUTO) 5.5 K/uL (4.3-11.0)
[2024-01-10 16:56] LABS: CALCIUM, SERUM 8.5 mg/dL (8.5-10.1); CARBON DIOXIDE 23 mmol/L (21-32); CHLORIDE 107 mmol/L (98-107); CREATININE 2.4 mg/dL (0.6-1.3); GLUCOSE 125 mg/dL (74-106); POTASSIUM 4.8 mmol/L (3.5-5.1); SODIUM SERUM 136 mmol/L (136-145); UREA NITROGEN, BLOOD 43 mg/dL (7-18)
[2024-01-10] MEDS ORDERED: CHOL100043 PO (17:02)
[2024-01-10] MEDS ORDERED: AMIN30LI2 PO (17:02)
[2024-01-10] MEDS ORDERED: RISP4TAB70 PO (17:02)
[2024-01-10] MEDS ORDERED: ACET325T53 PO (17:02)
[2024-01-10] MEDS ORDERED: TRAZ-182 PO (17:02)
[2024-01-10] MEDS ORDERED: LATA2.5D2 EACHEYE (17:02)
[2024-01-10] MEDS ORDERED: BENZ0.5T43 PO (17:02)
[2024-01-10 17:10] LABS: ALANINE AMINOTRANSFERASE 19 U/L (12-78); ALCOHOL, BLOOD < 3 mg/dL (0-10); ALKALINE PHOSPHATASE 144 U/L (46-116); ASPARTATE AMINOTRANSFERASE 18 U/L (15-37); BILIRUBIN,TOTAL 0.1 mg/dL (0.2-1.0); SALICYLATE 3.1 mg/dL (2.8-20.0); TOTAL PROTEIN, SERUM 8.5 g/dL (6.4-8.2)
[2024-01-10 17:13] LABS: ACETAMINOPHEN <10 ug/ml (10-30)
[2024-01-10 18:51] LABS: APPEARANCE,URINE Slightly Cloudy (CLEAR); BILIRUBIN,URINE Negative (NEGATIVE); BLOOD, URINE Moderate Ery/uL (NEGATIVE); COLOR,URINE LIGHT YELLOW (YELLOW); KETONES,URINE Negative (NEGATIVE); LEUKOCYTE ESTERASE ,URINE Small (NEGATIVE); NITRITE, URINE Negative (NEGATIVE); PH,URINE 5.5 (5.0-8.0); PROTEIN,URINE 100 mg/dl (NEGATIVE); UGLUCOSE Negative (NEGATIVE); UROBILINOGEN,URINE 0.2 EU/dL (0.2)
[2024-01-10 19:22] LABS: AMPHETAMINE, URINE NEGATIVE (NEGATIVE); BARBITURATE, URINE NEGATIVE (NEGATIVE); BENZODIAZEPINE, URINE NEGATIVE (NEGATIVE); CANNABINOID, URINE NEGATIVE (NEGATIVE); COCCAINE, URINE NEGATIVE (NEGATIVE); OPIATE, URINE NEGATIVE (NEGATIVE); PHENCYCLIDINE SCREEN,URINE NEGATIVE (NEGATIVE)
[2024-01-10 19:28] LABS: ADD URINE CULTURE YES; SQUAMOUS EPITHELIAL CELL,UR Few /HPF (None Seen)
[2024-01-10 19:30] LABS: BACTERIA,URINE Few /HPF (None Seen)
[2024-01-11 01:30] VITALS: BP 127/66; TEMP 98.2; O2SAT 96
[2024-01-11] MEDS ORDERED: ACETAMINOPHEN 325 MG TABLET PO PRN ×2 (01:30)
[2024-01-11] MEDS ORDERED: TEMAZEPAM 7.5 MG CAPSULE PO PRN (01:30)
[2024-01-11] MEDS ORDERED: MAGNESIUM HYDROXIDE 30 ML UDC PO PRN (01:30)
[2024-01-11] MEDS ORDERED: MAG HYDROX/AL HYDROX/SIMETH 30 ML UDC PO PRN (01:30)
[2024-01-11] MEDS: BLOOD SUGAR DIAGNOSTIC 1 EACH STRIP IN ONE (02:09)
[2024-01-11 08:00] VITALS: BP 123/81; TEMP 98.1; O2SAT 97
[2024-01-11] MEDS ORDERED: GABAPENTIN 100 MG CAPSULE PO SCH (09:00)
[2024-01-11] MEDS ORDERED: AMANTADINE HCL 100 MG CAPSULE PO SCH (09:00)
[2024-01-11] MEDS: LACTULOSE 10 G/15 ML UDC (PYXIS) PO SCH (10:07)
[2024-01-11] MEDS: DIVALPROEX SODIUM 500 MG TABLET.DR PO SCH (10:08)
[2024-01-11] MEDS: risperiDONE 1 MG TABLET PO SCH (10:08)
[2024-01-11] MEDS: AMANTADINE HCL 100 MG CAPSULE PO SCH (10:09)
[2024-01-11] MEDS: GABAPENTIN 100 MG CAPSULE PO SCH (10:09)
[2024-01-11] MEDS: THIAMINE HCL 100 MG TABLET PO SCH (10:09)
[2024-01-11] MEDS: LEVOTHYROXINE SODIUM 25 MCG TABLET PO SCH (10:09)
[2024-01-11] MEDS: FINASTERIDE (5 MG) 5 MG TABLET PO SCH (10:10)
[2024-01-11] MEDS: LEVOCARNITINE 330 MG TABLET PO SCH (10:11)
[2024-01-11] MEDS: CEPHALEXIN MONOHYDRATE 250 MG CAPSULE PO SCH (13:05)
[2024-01-11 16:00] VITALS: BP 131/80; TEMP 98.7; O2SAT 97
[2024-01-11 21:16] VITALS: BP 130/73; TEMP 98.2; O2SAT 97
[2024-01-11] MEDS: ATORVASTATIN 40 MG TABLET PO SCH (21:22)
[2024-01-11] MEDS: TRAZODONE 50 MG TABLET PO SCH (21:22)
[2024-01-11] MEDS: LATANOPROST EYE DROP 0.005% 2.5 ML BOTTLE EACHEYE SCH (21:23)
[2024-01-12 08:00] VITALS: BP 145/82; TEMP 97.7; O2SAT 96
[2024-01-12 08:38] LABS: CREATININE 2.3 mg/dL (0.6-1.3)
[2024-01-12 08:44] LABS: CHOLESTEROL 115 mg/dL (<200); HDL CHOLESTEROL 50 mg/dL (40-60); LDL 45 mg/dL (0-99); TRIGLYCERIDES 107 mg/dL (30-150)
[2024-01-12] MEDS: CLOTRIMAZOLE/BETAMETASONE DIPROPIONATE 15 GM TUBE TP SCH (15:00)
[2024-01-12 16:00] VITALS: BP 118/57; TEMP 97.9; O2SAT 98
[2024-01-12 20:50] VITALS: BP 135/66; TEMP 98.1; O2SAT 95
[2024-01-13 08:00] VITALS: BP 151/90; TEMP 97.8; O2SAT 97
[2024-01-13] MEDS: LORAZEPAM 0.5 MG TABLET PO PRN (08:46)
[2024-01-13 18:54] VITALS: BP 130/73; TEMP 98.1; O2SAT 96
[2024-01-13 20:00] VITALS: BP 119/71; TEMP 98.4; O2SAT 97
[2024-01-14 08:21] VITALS: BP 140/93; TEMP 98.1; O2SAT 98
[2024-01-14] MEDS: GABAPENTIN 100 MG CAPSULE PO SCH (09:16)
[2024-01-14 16:00] VITALS: BP 126/65; TEMP 98; O2SAT 95
[2024-01-14 20:00] VITALS: BP 138/72; TEMP 98.4; O2SAT 99
[2024-01-15 08:00] VITALS: BP 127/74; TEMP 97.6; O2SAT 97
[2024-01-15 16:00] VITALS: BP 123/66; TEMP 98.6; O2SAT 94
[2024-01-15 20:00] VITALS: BP 122/77; TEMP 98.1; O2SAT 98
[2024-01-16 08:00] VITALS: BP 118/66; TEMP 97.5; O2SAT 94
[2024-01-16 16:00] VITALS: BP 123/90; TEMP 97.9; O2SAT 96
[2024-01-16 20:00] VITALS: BP 133/65; TEMP 98; O2SAT 96
[2024-01-17 08:00] VITALS: BP 148/87; TEMP 97.9; O2SAT 98
[2024-01-17 16:00] VITALS: BP 136/79; TEMP 98.6; O2SAT 97
[2024-01-17 20:50] VITALS: BP 119/74; TEMP 98.9; O2SAT 95
[2024-01-18 08:00] VITALS: BP 129/80; TEMP 98; O2SAT 94
[2024-01-18 16:00] VITALS: BP 142/94; TEMP 97.8; O2SAT 93
[2024-01-18 16:06] LABS: CALCIUM, SERUM 8.5 mg/dL (8.5-10.1); CARBON DIOXIDE 26 mmol/L (21-32); CHLORIDE 108 mmol/L (98-107); CREATININE 2.1 mg/dL (0.6-1.3); GLUCOSE 94 mg/dL (74-106); POTASSIUM 5.5 mmol/L (3.5-5.1); SODIUM SERUM 138 mmol/L (136-145); UREA NITROGEN, BLOOD 41 mg/dL (7-18)
[2024-01-18] MEDS: SODIUM POLYSTYRENE SULFONATE 15 G/60 ML BOTTLE PO ONE (19:19)
[2024-01-18 20:00] VITALS: BP 114/59; TEMP 98.1; O2SAT 95
[2024-01-19 07:49] LABS: CALCIUM, SERUM 8.4 mg/dL (8.5-10.1); CARBON DIOXIDE 24 mmol/L (21-32); CHLORIDE 110 mmol/L (98-107); CREATININE 2.1 mg/dL (0.6-1.3); GLUCOSE 78 mg/dL (74-106); POTASSIUM 5.6 mmol/L (3.5-5.1); SODIUM SERUM 140 mmol/L (136-145); UREA NITROGEN, BLOOD 41 mg/dL (7-18)
[2024-01-19 08:00] VITALS: BP 155/82; TEMP 97.9; O2SAT 98
[2024-01-19] MEDS: SODIUM POLYSTYRENE SULFONATE 15 G/60 ML BOTTLE PO ONE (11:21)
[2024-01-19 16:00] VITALS: BP 137/80; TEMP 98.6; O2SAT 98
[2024-01-19 20:33] VITALS: BP 104/45; TEMP 98.4; O2SAT 95
[2024-01-20 08:00] VITALS: BP 127/69; TEMP 98.1; O2SAT 95
[2024-01-20 10:25] LABS: CALCIUM, SERUM 8.3 mg/dL (8.5-10.1); CARBON DIOXIDE 30 mmol/L (21-32); CHLORIDE 105 mmol/L (98-107); CREATININE 2.1 mg/dL (0.6-1.3); GLUCOSE 83 mg/dL (74-106); POTASSIUM 4.4 mmol/L (3.5-5.1); SODIUM SERUM 139 mmol/L (136-145); UREA NITROGEN, BLOOD 42 mg/dL (7-18)
[2024-01-20 16:00] VITALS: BP 136/74; TEMP 98; O2SAT 94
[2024-01-20 20:00] VITALS: BP 129/70; TEMP 98; O2SAT 98
[2024-01-21 08:00] VITALS: BP 135/79; TEMP 98.7; O2SAT 97
== END 2024-01-21 13:30 | DRG 885 ==
LOC: ER 16:08 → GPS 23:05
PROVIDERS: ADMIT Psychiatry & Neurology Psychiatry; ATTEND Internal Medicine
DX: F25.0 Schizoaffective disorder, bipolar type (principal); N17.9 Acute kidney failure, unspecified; N18.9 Chronic kidney disease, unspecified; N39.0 Urinary tract infection, site not specified; G93.49 Other encephalopathy; F02.84 Dementia in other diseases classified elsewhere, unspecified severity, with anxiety; I10 Essential (primary) hypertension; G20.A1 Parkinson's disease without dyskinesia, without mention of fluctuations; G40.909 Epilepsy, unspecified, not intractable, without status epilepticus; E87.5 Hyperkalemia; E03.9 Hypothyroidism, unspecified; L29.9 Pruritus, unspecified; L85.3 Xerosis cutis; I12.9 Hypertensive chronic kidney disease with stage 1 through stage 4 chronic kidney disease, or unspecified chronic kidney disease; Z20.822 Contact with and (suspected) exposure to COVID-19; D63.1 Anemia in chronic kidney disease; B35.3 Tinea pedis; L30.9 Dermatitis, unspecified; E78.5 Hyperlipidemia, unspecified; N40.1 Benign prostatic hyperplasia with lower urinary tract symptoms; Z79.899 Other long term (current) drug therapy
CPT/HCPCS: 36415; 76770-TC; 80048-TC; 80061-TC; 80076-TC; 80164-TC; 81001; 82565-TC; 82962-TC; 85025-TC; 87081-TC; 97110-TC; 97116-TC; 97530-TC; G0480